=== PATIENT | female | born 2000 | race American Indian/Alaskan Native ===

== ENCOUNTER 2023-09-25 17:29 | Emergency (ER) | payer OTHER, SELFPAY ==
--- NOTE | ~2023-09-25 | US_ITS ---
EXAMINATION: US pelvic complete DATE: 09/25/2023 21:58 INDICATION: Right flank pain. TECHNIQUE: Multiple transabdominal sonographic images of the pelvis were obtained. COMPARISON: CT abdomen and pelvis 09/25/2023 FINDINGS: The uterus measures 8.4 x 3.7 x 4.9 cm. There is no free fluid in the pelvis. The endometrial complex measures 9 mm in thickness. The right ovary measures 4.7 x 3.4 x 3.4 cm. There is a 2.9 cm hypoechoi c mass in right ovary. The left ovary measures 2. 5.1 x 2.0 cm. There is normal vascular flow in the ovaries. IMPRESSION: 1. 2.9 cm hypoechoic mass in right ovary, consistent with a hemorrhagic cyst. Reviewed, dictated and finalized at location E.
--- NOTE | ~2023-09-25 | CT_ITS ---
EXAMINATION: CT abdomen pelvis wo con DATE: 09/25/2023 20:04 INDICATION: Right flank pain. TECHNIQUE: Computed tomography (CT) of the abdomen and pelvis was performed without intravenous contr ast. Automated exposure control and iterative reconstruction technique were employed. The dose-length product was 201.25 mGy-cm. COMPARISON: None. FINDINGS: The visualized portions of the lung bases are clear without pneumonia or pleural effusion. The heart size is normal. No pericardial effusion. The common, spleen, pancreas, adrenal glands, and left kidney are normal. There is a 4.3 cm hyperdense mass in right kidney lower pole. There is no uro lithiasis. There is a 3.4 cm cyst in right ovary. There are no dilated loops of bowel. The appendix i s normal. There are no pathologically enlarged lymph nodes. There is no free intraperitoneal fluid. T he bones are unremarkable. IMPRESSION: 1. 4.3 cm hyperdense mass in right kidney lower pole. The differential diagnosis includes hematoma, h emorrhagic cyst, and less likely neoplasm. Abdomen CT with contrast is recommended. 2. 3.4 cm cyst in right ovary, likely a follicular cyst. Reviewed, dictated and finalized at location E. IMPRESSION: 1. 4.3 cm hyperdense mass in right kidney lower pole. The differential diagnosi s includes hematoma, hemorrhagic cyst, and less likely neoplasm. Abdomen CT wit h contrast is recommended. 2. 3.4 cm cyst in right ovary, likely a follicular cyst.
[2023-09-25 17:45] VITALS: BP 113/81; PULSE 86; RESP 18; TEMP 36.4; O2SAT 100
[2023-09-25 19:23] VITALS: BP 116/77; PULSE 84; RESP 20; O2SAT 100
[2023-09-25 19:40] LABS: Basophils Percent Auto 0.5 % (0.2-1.2); Eosinophils Absolute Auto 0.1 K/mm3 (0-0.3); Eosinophils Percent Auto 1.3 % (0-4.4); Hematocrit 38.9 % (37.0-47.0); Hemoglobin 12.5 g/dL (12.0-15.0); Immature Granulocyte Absolute 0.02 K/mm3 (0.00-0.031); Immature Granulocyte Percent A 0.2 % (0-0.5); Lymphocytes Absolute Auto 2.93 K/mm3 (0.9-3.2); Lymphocytes Percent Auto 35.1 % (18.3-44.2); Mean Corpuscular HGB Conc 32.1 g/dl (32-36); Mean Corpuscular Hemoglobin 27.1 pg (26-34); Mean Corpuscular Volume 84.4 fl (80-100); Monocytes Absolute Auto 0.7 K/mm3 (0.1-0.6); Monocytes Percent Auto 7.8 % (2.6-8.5); Neutrophils Absolute Auto 4.6 K/mm3 (1.3-6.7); Neutrophils Percent Auto 55.1 % (45.5-73.1); Platelet Count Result 257 k/mm3 (150-375); Red Blood Count 4.61 M/mm3 (4.2-5.4); Red Cell Distribution Width 13.4 % (11.5-14.5); White Blood Count 8.3 K/mm3 (4.5-10.0)
[2023-09-25] MEDS: SODIUM CHLORIDE 0.9% IV 1,000 ML 999 ML IV CONT (19:48)
[2023-09-25] MEDS: ONDANSETRON INJ 4 MG/2 ML VIAL IV PUSH (19:49)
[2023-09-25] MEDS: MORPHINE SULFATE (*CRX) 4 MG/ML INJ 2 MG IV PUSH (19:50)
[2023-09-25 19:54] LABS: Alanine Aminotransferase 11 U/L (6-35); Albumin Level 4.2 g/dL (3.5-5.1); Alkaline Phosphatase 72 U/L (38-126); Anion Gap 5 mmol/L (8-16); Aspartate Amino Transferase 19 U/L (14-36); Bilirubin,Total 0.6 mg/dL (0.2-1.3); Blood Urea Nitrogen 13 mg/dL (7-17); Calcium 8.9 mg/dL (8.4-10.2); Carbon Dioxide 24 mmol/L (22-30); Chloride 108 mmol/L (98-107); Estimated CRCL calculation 117 ml/min; Estimated Glomerular Filt Rate > 60; Glucose 70 mg/dL (65-110); Lipase 165 U/L (23-300); Potassium 4.1 mmol/L (3.4-5.0); Sodium 137 mmol/L (137-145)
[2023-09-25 20:08] LABS: Appearance Urine Clear (Clear); Bacteria Urine Rare /hpf; Bilirubin Urine Negative (Negative); Blood Urine Negative (Negative); Color Urine Yellow (Yellow); Glucose Urine UA Negative (Negative); Ketones Urine Negative (Negative); Leukocyte Esterase Ur Trace LEU/UL (Negative); Nitrate Urine Negative (Negative); Non Pathogenic Casts 0-2; Protein Urine Negative (Negative); RBC Urine 0-2 /hpf (0-2); Specific Grav Ur 1.022 (1.001-1.035); Squamous Epithelial Cell Urine None seen /hpf (Few); WBC Urine 0-5 /hpf
[2023-09-25 20:15] LABS: Add Urine Microscopic? NO
[2023-09-25] MEDS: MORPHINE SULFATE (*CRX) 4 MG/ML INJ IV PUSH (20:55)
--- NOTE | 2023-09-25 22:14 | ED.GENADULT ---
HPI - General Adult General Chief complaint: Abdominal Pain Stated complaint: abd pain Time Seen by Provider: 09/25/23 19:21 History of Present Illness HPI narrative: Patient is a 23-year-old female who presents emergency department with chief complaint of right abdomen and right flank pain. Patient reports she has history of renal cyst reports she has had pain similar to this but reports that pain has been worse over the last several days. Patient reports she is scheduled for outpatient follow-up imaging she is followed in the [facility] system for the cyst. The patient states that the pain is worse with movement and improved with rest. Patient denies fever denies vaginal discharge denies dysuria Related Data Allergies Allergy/AdvReac Type Severity Reaction Status Date / Time No Known Allergies Allergy Verified 09/25/23 19:22 Review of Systems Review of Systems: A 10 system review of systems was completed on the patient and is negative except for what is stated in the HPI. Nursing and ancillary documentation was reviewed. Exam Narrative: GENERAL: Well-appearing, well-nourished, and in no acute distress. HEAD: Normocephalic, atraumatic. EYES: PERRLA and EOMI. ENT: Nares clear, no rhinorrhea or epistaxis. Mucous membranes moist. NECK: Supple. CHEST: Clear to auscultation. No respiratory distress. HEART: Regular rate and rhythm. No murmur heard. Normal peripheral pulses. ABDOMEN: Soft, nontender, nondistended, normal active bowel sounds. Tenderness to palpation in the right CVA EXTREMITIES: Normal range of motion. No edema. SKIN: Warm, dry, no rash. NEURO: No focal deficits. Alert and oriented x3. PSYCH: Normal mood and affect. Course Vital Signs Vital signs: Vital Signs Temperature 36.4 C 09/25/23 17:45 Pulse Rate 86 09/25/23 17:45 Respiratory Rate 18 09/25/23 17:45 Blood Pressure 113/81 09/25/23 17:45 Pulse Oximetry 100 09/25/23 17:45 Oxygen Delivery Room Air 09/25/23 17:45 Temperature 36.4 C 09/25/23 17:45 Pulse Rate 84 09/25/23 19:23 Respiratory Rate 20 09/25/23 19:23 Blood Pressure 116/77 09/25/23 19:23 Pulse Oximetry 100 09/25/23 19:23 Oxygen Delivery Room Air 09/25/23 17:45 Medical Decision Making [facility] Narrative Medical decision making narrative: Differential diagnosis includes ureterolithiasis, ovarian cyst ovarian torsion, appendicitis Laboratory studies were obtained on the patient showed a white count of 8.3 electrolytes showed normal sodium normal potassium BUN was 13 creatinine 0.5 liver enzymes were normal lipase was normal urinalysis showed no evidence of a UTI CT scan of the abdomen pelvis showed 1. 4.3 cm hyperdense mass in right kidney lower pole. The differential diagnosis includes hematoma, hemorrhagic cyst, and less likely neoplasm. Abdomen CT with contrast is recommended. 2. 3.4 cm cyst in right ovary, likely a follicular cyst. The right renal lesion is known and she is followed by urology in the [facility] system The ovarian cyst is a new finding and given the patient's pain the patient was evaluated for possible ovarian torsion Ultrasound showed evidence of1. 2.9 cm hypoechoic mass in right ovary, consistent with a hemorrhagic cyst. But no evidence of torsion. Vital Signs Vital Signs: Vital Signs Temperature 36.4 C 09/25/23 17:45 Pulse Rate 86 09/25/23 17:45 Respiratory Rate 18 09/25/23 17:45 Blood Pressure 113/81 09/25/23 17:45 Pulse Oximetry 100 09/25/23 17:45 Oxygen Delivery Room Air 09/25/23 17:45 Temperature 36.4 C 09/25/23 17:45 Pulse Rate 84 09/25/23 19:23 Respiratory Rate 20 09/25/23 19:23 Blood Pressure 116/77 09/25/23 19:23 Pulse Oximetry 100 09/25/23 19:23 Oxygen Delivery Room Air 09/25/23 17:45 Lab Data 09/25/23 19:28 09/25/23 19:28 Labs: Lab Results 09/25/23 Range/Units 19:28 WBC 8.3 (4.5-10.0) K/mm3 RBC 4.61 (4.2-5.4)
[2023-09-25] MEDS: HYDROcodone/acetaminophen (*CRX) 5-325 MG TABLET 1 TAB PO (22:35)
[2023-09-25 22:37] VITALS: BP 117/86; PULSE 67; RESP 15; TEMP 37.1; O2SAT 99
== END 2023-09-25 22:39 | disposition home or self-care (01) ==
PROVIDERS: Emergency Provider Emergency Medicine
DX: N83.201 Unspecified ovarian cyst, right side (principal); N28.89 Other specified disorders of kidney and ureter
CPT/HCPCS: 36415; 74176; 76856; 80053; 81003; 81025; 83690; 85025; 96361; 96374; 96375; 96376; 99284; A9270; J2270; J2405; J7030

== ENCOUNTER 2023-11-25 17:25 | Emergency (ER) | payer OTHER, SELFPAY ==
--- NOTE | ~2023-11-25 | CT_ITS ---
EXAMINATION: CT abdomen pelvis w con DATE: 11/25/2023 19:45 INDICATION: Right lower quadrant abdominal pain and right flank pain. TECHNIQUE: Computed tomography (CT) of the abdomen and pelvis was performed with 100 mL Omnipaque-350 intravenous contrast. Automated exposure control and iterative reconstruction technique were employe d. The dose-length product was 211.72 mGy-cm. COMPARISON: FINDINGS: Lung bases are clear. Heart size is normal. No pericardial or pleural effusion. Focal hepatic steatos is at the ligamentum teres. Gallbladder, spleen, pancreas, left kidney and bilateral adrenal glands a re normal. Again seen is a 3.9 x 3.4 x 5.0 complex masslike region at the lower pole of the right kid jean-pierre appears demonstrate combination of cystic and hypoenhancing soft tissue which raises concern for either neoplasm, infarct or hemorrhage. Bladder, anteverted uterus and bilateral adnexa are unremarka ble. No free intraperitoneal gas or fluid. No pathologically enlarged abdominal or pelvic lymphadenop athy. Bones are unremarkable. IMPRESSION: 1. 5.0 x 3.9 x 3.4 cm complex likely mixed cystic and hypoenhancing solid mass at the lower pole of t he right kidney. Differential includes neoplasm, infarct, hemorrhagic cyst and pyelonephritis. This i s been reportedly followed up at an outside institution. Correlate with urinalysis and with any outsi de clinical history. Reviewed, dictated and finalized at location A. IMPRESSION: 1. 5.0 x 3.9 x 3.4 cm complex likely mixed cystic and hypoenhancing solid mass at the lower pole of the right kidney. Differential includes neoplasm, infarct, hemorrhagic cyst and pyelonephritis. This is been reportedly followed up at an outside institution. Correlate with urinalysis and with any outside clinical h istory.
--- NOTE | ~2023-11-25 | US_ITS ---
EXAMINATION: US pelvic complete DATE: 11/25/2023 18:44 INDICATION: Right ovarian cyst with persistent pelvic pain TECHNIQUE: Multiple transabdominal sonographic images of the pelvis were obtained. COMPARISON: None. FINDINGS: The anteverted uterus measures 5.7 x 3.2 x 4.7 cm. The endometrial complex measures 4 mm in thicknes s. The right ovary measures 3.1 x 2.0 x 1.8 cm. The left ovary measures 2.8 x 1.3 x 2.5 cm. No ovaria n cysts identified on either the left or right. After flow is identified with arterial waveforms in b oth ovaries on color Doppler. There is no free fluid in the pelvis. IMPRESSION: 1. Normal pelvic ultrasound. Reviewed, dictated and finalized at location A.
[2023-11-25 17:53] VITALS: BP 90/65; PULSE 80; RESP 20; TEMP 36.3; O2SAT 100
[2023-11-25 18:00] VITALS: BP 114/81
--- NOTE | 2023-11-25 18:00 | ED.ABDPAIN ---
HPI - Abdominal Pain General Chief Complaint: Abdominal Pain <LUDWIG Morgan Last Filed: 11/28/23 09:10> Stated Complaint: flank pain <LUDWIG Morgan Last Filed: 11/28/23 09:10> Time Seen by Provider: 11/25/23 18:00 <LUDWIG Morgan Last Filed: 11/28/23 09:10> Focused HPI: Patient is a 23 y/o female who presents to the ED with report of R abdominal and flank pain. Patient was seen in the ED here recently for similar pain, diagnosed with right-sided hemorrhagic ovarian cyst. Also was found have a right renal mass, which was reported that she follows with urology with [facility]. Was referred to [facility] with OBGYN and has followed with them, has not had further US imaging. Patient reports the pain has been ongoing. She has been taking Lerona without relief. Denies other aggravating or relieving factors. Denies urinary complaints. Denies nausea, vomiting, fevers. GENERAL: Well-appearing, well-nourished, and in no acute distress. HEAD: Normocephalic, atraumatic. CHEST: Clear to auscultation. ?No respiratory distress. HEART: Regular rate and rhythm.? ABD: Minimal tenderness in R lower abdomen. No appreciable flank tenderness. NEURO: ?Alert and oriented x3. Patient screened in triage and initial orders placed.? ?Additional care and disposition to be based upon?diagnostic testing and treatment. <LUDWIG Morgan Last Filed: 11/28/23 09:10> Source: patient <LUDWIG Morgan Last Filed: 11/28/23 09:10> Mode of arrival: ambulatory <LUDWIG Morgan Last Filed: 11/28/23 09:10> Limitations: no limitations <LUDWIG Morgan Last Filed: 11/28/23 09:10> Related Data Allergies/Adverse Reactions: Allergies Allergy/AdvReac Type Severity Reaction Status Date / Time No Known Allergies Allergy Verified 11/25/23 17:59 <LUDWIG Morgan Last Filed: 11/28/23 09:10> Course Vital Signs Vital signs: Vital Signs Temperature 97.4 F L 11/25/23 17:53 Pulse Rate 80 11/25/23 17:53 Respiratory Rate 20 11/25/23 17:53 Blood Pressure 90/65 L 11/25/23 17:53 Pulse Oximetry 100 11/25/23 17:53 Oxygen Delivery Room Air 11/25/23 17:53 Temperature 97.4 F L 11/25/23 17:53 Pulse Rate 74 11/25/23 23:16 Respiratory Rate 16 11/25/23 23:16 Blood Pressure 107/81 11/25/23 23:16 Pulse Oximetry 98 11/25/23 23:16 Oxygen Delivery Room Air 11/25/23 17:53 <Liudmila Garrison PA-C - Last Filed: 11/28/23 09:10> Vital Signs Temperature 97.4 F L 11/25/23 17:53 Pulse Rate 80 11/25/23 17:53 Respiratory Rate 20 11/25/23 17:53 Blood Pressure 90/65 L 11/25/23 17:53 Pulse Oximetry 100 11/25/23 17:53 Oxygen Delivery Room Air 11/25/23 17:53 Temperature 97.4 F L 11/25/23 17:53 Pulse Rate 74 11/25/23 23:16 Respiratory Rate 16 11/25/23 23:16 Blood Pressure 107/81 11/25/23 23:16 Pulse Oximetry 98 11/25/23 23:16 Oxygen Delivery Room Air 11/25/23 17:53 <Gale Allred MD - Last Filed: 12/02/23 07:17> MDM - Abdominal Pain MDM Narrative Medical decision making narrative: MSE by CHAD in triage. <Liudmila Garrison PA-C - Last Filed: 11/28/23 09:10> MSE by CHAD in triage. Agree with above. Patient here with flank pain, h/o ovarian and kidney cyst diagnosed in [place]; TVUS neg for acute abnormality and no ovarian cyst; CT A/P showing the complex renal cyst. She had been seen at [facility] in the past for this before and had received reassurance and that there was nothing to do. Results/findings discussed with pt and partner on bedside; to help ensure timely followup, I did call on-call urologist Dr Hernandez who would like patient to be seen in the clinic and obtain outpt MRI and further eval/followup. Discussed plan with pt and family who are agreeable. Pain controlled here with oral meds. Stable for dc. She did appear comfortable in NAD at
[2023-11-25] MEDS: ACETAMINOPHEN 500 MG TABLET 1000 MG PO (19:01)
[2023-11-25 19:11] LABS: Basophils Percent Auto 0.4 % (0.2-1.2); Eosinophils Absolute Auto 0.1 K/mm3 (0-0.3); Eosinophils Percent Auto 1.5 % (0-4.4); Hematocrit 40.5 % (37.0-47.0); Immature Granulocyte Absolute 0.02 K/mm3 (0.00-0.031); Immature Granulocyte Percent A 0.3 % (0-0.5); Lymphocytes Absolute Auto 2.52 K/mm3 (0.9-3.2); Lymphocytes Percent Auto 33.7 % (18.3-44.2); Mean Corpuscular HGB Conc 32.1 g/dl (32-36); Mean Corpuscular Hemoglobin 27.4 pg (26-34); Mean Corpuscular Volume 85.4 fl (80-100); Mean Platelet Volume 10.8 fl (7.4-10.4); Monocytes Absolute Auto 0.6 K/mm3 (0.1-0.6); Monocytes Percent Auto 7.6 % (2.6-8.5); Neutrophils Absolute Auto 4.2 K/mm3 (1.3-6.7); Neutrophils Percent Auto 56.5 % (45.5-73.1); Platelet Count Result 263 k/mm3 (150-375); Red Blood Count 4.74 M/mm3 (4.2-5.4); Red Cell Distribution Width 13.2 % (11.5-14.5); White Blood Count 7.5 K/mm3 (4.5-10.0)
[2023-11-25 19:12] LABS: Appearance Urine Clear (Clear); Bilirubin Urine Negative (Negative); Blood Urine Negative (Negative); Color Urine Yellow (Yellow); Glucose Urine UA Negative (Negative); Ketones Urine Negative (Negative); Leukocyte Esterase Ur Negative LEU/UL (Negative); Nitrate Urine Negative (Negative); Protein Urine Negative (Negative); Specific Grav Ur 1.016 (1.001-1.035)
[2023-11-25 19:14] LABS: Add Urine Microscopic? NO
[2023-11-25 19:25] LABS: Alanine Aminotransferase 13 U/L (6-35); Albumin Level 4.5 g/dL (3.5-5.1); Alkaline Phosphatase 82 U/L (38-126); Anion Gap 10 mmol/L (4-12); Aspartate Amino Transferase 21 U/L (14-36); Bilirubin,Total 0.7 mg/dL (0.2-1.3); Blood Urea Nitrogen 11 mg/dL (7-17); Calcium 9.3 mg/dL (8.4-10.2); Carbon Dioxide 22 mmol/L (22-30); Chloride 109 mmol/L (98-107); Estimated CRCL calculation 100 ml/min; Estimated Glomerular Filt Rate > 60; Glucose 81 mg/dL (65-110); Lipase 172 U/L (23-300); Sodium 141 mmol/L (137-145)
[2023-11-25 22:25] VITALS: BP 112/81; PULSE 82; RESP 18; O2SAT 100
[2023-11-25 22:26] VITALS: BP 112/81; PULSE 79; RESP 18; O2SAT 99
[2023-11-25 22:46] VITALS: BP 108/83; PULSE 78; RESP 16; O2SAT 100
[2023-11-25 23:16] VITALS: BP 107/81; PULSE 74; RESP 16; O2SAT 98
== END 2023-11-25 23:24 | disposition home or self-care (01) ==
PROVIDERS: Physician Assistant; Emergency Provider Emergency Medicine
DX: N28.89 Other specified disorders of kidney and ureter (principal)
CPT/HCPCS: 36415; 74177; 76856; 80053; 81003; 81025; 83690; 85025; 99284; A9270; Q9967